=== PATIENT | male | born 1945 | race Caucasian/White ===

== ENCOUNTER → 2017-03-08 | Outpatient (CLI) | payer MEDICARE, BC | LOC: COL.RAD 12:39 | DX: K22.4 Dyskinesia of esophagus (principal) ==

== ENCOUNTER → 2018-01-02 | Emergency (ER) | payer MEDICARE, BC | LOC: COL.ER 16:02 | DX: Z72.89 Other problems related to lifestyle (principal) ==

== ENCOUNTER 2018-02-07 08:55 | Day surgery (SDC) | payer MEDICARE, BC ==
[2006-02-14 06:05] VITALS: BP 146/83
[~2018-02-07] VITALS: Ht 167.6 cm; Wt 65.1 kg
[~2018-02-07 08:55] MED LIST: ASPIRIN 81M81 MG/TA2 PO; D-2000 90 MG-201 TAB PO; LIPITOR 40MG TA40 MG PO; NEXIUM 40MG40 MG PO; NIASPAN1000 MG PO; PRINIVIL2.5 MG PO; PROAMATINE 5MG T5 MG PO; STRATTERA 40MG40 MG PO; TOPROL XL 25MG25 MG PO
[2018-02-07 09:36] VITALS: BP 116/72; PULSE 70; TEMP 98.2
[2018-02-07] MEDS ORDERED: ZYRTEC 10MG10 MG PO (09:47)
[2018-02-07 10:33] VITALS: BP 110/56; PULSE 84; TEMP 97.8
[2018-02-07 10:45] VITALS: BP 99/61; PULSE 64
[2018-02-07 11:00] VITALS: BP 96/65; PULSE 67
[2018-02-07 12:46] VITALS: BP 102/58; PULSE 59
== END 2018-02-07 11:20 | disposition home or self-care (01) ==
LOC: SDCO 08:55
DX: K21.9 Gastro-esophageal reflux disease without esophagitis (principal); R13.10 Dysphagia, unspecified; Z79.82 Long term (current) use of aspirin; Z79.899 Other long term (current) drug therapy; Z95.1 Presence of aortocoronary bypass graft
CPT/HCPCS: J2250; J3010; J7030

== ENCOUNTER 2018-03-09 09:58 | Inpatient (IN) | payer MEDICARE, BC ==
[~2018-03-09] VITALS: Ht 167.6 cm; Wt 64.9 kg
[2018-03-09] VITALS (468 sets, daily range): BP systolic 90–98; BP diastolic 50–59; PULSE 75–79; TEMP 97.9–98.7; O2SAT 67–100
[~2018-03-09 09:58] MED LIST changes: +ZYRTEC 10MG10 MG PO
[2018-03-09 10:32] LABS: HEMATOCRIT 38.4 % (42.0-52.0); HEMOGLOBIN 12.8 g/dl (13.5-18.0); MEAN CELL VOLUME 94 fl (80.0-100.0); MEAN CORPUSCULAR HEMOGLOBIN 31 pg (27.0-31.0); MEAN CORPUSCULAR HGB CONC 33 g/dl (33.0-37.0); MEAN PLATELET VOLUME 12.8 fl (7.4-10.4); PLATELET COUNT 92 K/mm3 (130-400); REDCELL DISTRIBUTION WIDTH-CV 15.1 % (11.5-14.5)
[2018-03-09] MEDS ORDERED: PRINIVIL2.5 MG PO (10:40)
[2018-03-09 10:42] LABS: ALANINE AMINOTRANSFERASE 81 U/L (21-72); ALBUMIN 2.9 gm/dL (3.5-5.0); ALKALINE PHOSPHATASE 137 U/L (50-136); ANION GAP 11 mmol/L (7-16); AST,SGOT 97 U/L (15-37); BILIRUBIN,TOTAL 0.9 mg/dL (0.0-1.0); BLOOD UREA NITROGEN 13 mg/dL (9-20); CALCIUM 8.7 mg/dL (8.4-10.2); CARBON DIOXIDE 25 mmol/L (22-30); CHLORIDE 101 mmol/L (98-107); CREATINE KINASE 100 U/L (55-170); CREATININE, serum 0.82 mg/dL (0.66-1.25); GLUCOSE 98 mg/dL (74-106); POTASSIUM 4.1 mmol/L (3.4-5.0); SODIUM 137 mmol/L (137-145); TOTAL PROTEIN 5.9 gm/dL (6.4-8.2)
[2018-03-09 10:53] LABS: TROPONIN-I < 0.012 ng/mL (0.000-0.034)
[2018-03-09 11:24] LABS: COLLECTION METHOD CLEAN CATCH
[2018-03-09 11:38] LABS: HYALINE CAST >12 /lpf; MUCOUS Present /lpf; PH 5 (5-8); SQUAMOUS EPITHELIAL 0-2 /hpf; URINE APPEARANCE Cloudy; URINE BACTERIA Rare /hpf; URINE BILIRUBIN Positive (NEGATIVE); URINE BLOOD Negative (NEGATIVE); URINE COLOR Amber; URINE GLUCOSE Negative (NEGATIVE); URINE KETONE Trace (NEGATIVE); URINE LEUKOCYTE ESTERASE 2+ (NEGATIVE); URINE NITRATE Negative (NEGATIVE); URINE PROTEIN(semi-quant) 3+ (NEGATIVE)
[2018-03-10] VITALS (736 sets, daily range): BP systolic 90–96; BP diastolic 44–65; PULSE 56–69; TEMP 98–98.4; O2SAT 85–100
[2018-03-10 06:00] LABS: BASO % 0.5 % (0.0-2.0); EOS # 0.1 (0.0-0.7); GRAN # 1.8 (1.4-6.5); GRAN % 41.3 % (42.2-75.2); LYMPH # 1.8 (1.2-3.4); LYMPH % 42.1 % (20.0-51.0); MEAN CELL VOLUME 95 fl (80.0-100.0); MEAN CORPUSCULAR HGB CONC 33 g/dl (33.0-37.0); MONO # 0.6 (0.1-0.6); MONO % 12.9 % (1.7-9.3); PLATELET COUNT 56 K/mm3 (130-400); REDCELL DISTRIBUTION WIDTH-CV 15.2 % (11.5-14.5)
[2018-03-10 06:07] LABS: HEMATOCRIT 31.3 % (42.0-52.0); HEMOGLOBIN 10.3 g/dl (13.5-18.0); MEAN CORPUSCULAR HEMOGLOBIN 31 pg (27.0-31.0)
[2018-03-10 06:10] LABS: CALCIUM 7.8 mg/dL (8.4-10.2); CREATININE, serum 0.64 mg/dL (0.66-1.25); POTASSIUM 5.5 mmol/L (3.4-5.0)
[2018-03-10 06:52] LABS: CALCIUM 7.7 mg/dL (8.4-10.2); CREATININE, serum 0.61 mg/dL (0.66-1.25); POTASSIUM 4.6 mmol/L (3.4-5.0)
[2018-03-10 10:08] LABS: BILIRUBIN UNCONJUGATED 0.1 mg/dL (0.0-1.1); BILIRUBIN,DIRECT 0.2 mg/dL (0.0-0.4); BILIRUBIN,TOTAL 0.3 mg/dL (0.0-1.0); TOTAL PROTEIN 4.6 gm/dL (6.4-8.2)
[2018-03-11] VITALS (85 sets, daily range): BP systolic 103–132; BP diastolic 53–80; PULSE 67–76; TEMP 97.7–98.1; O2SAT 92–100
[2018-03-11 06:03] LABS: BASO % 0.3 % (0.0-2.0); EOS # 0.1 (0.0-0.7); GRAN # 1.4 (1.4-6.5); GRAN % 42.2 % (42.2-75.2); HEMOGLOBIN 10.4 g/dl (13.5-18.0); LYMPH # 1.4 (1.2-3.4); LYMPH % 42.6 % (20.0-51.0); MEAN CELL VOLUME 95 fl (80.0-100.0); MEAN CORPUSCULAR HEMOGLOBIN 32 pg (27.0-31.0); MEAN CORPUSCULAR HGB CONC 33 g/dl (33.0-37.0); MEAN PLATELET VOLUME 13.1 fl (7.4-10.4); MONO # 0.4 (0.1-0.6); MONO % 11.6 % (1.7-9.3); PLATELET COUNT 60 K/mm3 (130-400); RED BLOOD COUNT 3.29 M/mm3 (4.20-5.60); REDCELL DISTRIBUTION WIDTH-CV 15.4 % (11.5-14.5)
[2018-03-11 06:05] LABS: HEMATOCRIT 31.4 % (42.0-52.0)
[2018-03-11 06:13] LABS: CALCIUM 7.4 mg/dL (8.4-10.2); CREATININE, serum 0.61 mg/dL (0.66-1.25); POTASSIUM 4.3 mmol/L (3.4-5.0)
[2018-03-11 09:44] LABS: ALBUMIN 1.9 gm/dL (3.5-5.0); BILIRUBIN,TOTAL 0.2 mg/dL (0.0-1.0); CALCIUM 7.5 mg/dL (8.4-10.2); CREATININE, serum 0.62 mg/dL (0.66-1.25); POTASSIUM 4.3 mmol/L (3.4-5.0); TOTAL PROTEIN 4.3 gm/dL (6.4-8.2)
[2018-03-12] VITALS (9 sets, daily range): BP systolic 86–103; BP diastolic 41–66; PULSE 67–106; TEMP 97.9–98.5
[2018-03-12 06:35] LABS: BASO % 0.2 % (0.0-2.0); EOS # 0.1 (0.0-0.7); EOS % 1.4 % (0-4.0); GRAN # 3.2 (1.4-6.5); GRAN % 56.7 % (42.2-75.2); HEMATOCRIT 35.8 % (42.0-52.0); HEMOGLOBIN 11.8 g/dl (13.5-18.0); LYMPH # 1.8 (1.2-3.4); LYMPH % 31.9 % (20.0-51.0); MEAN CELL VOLUME 94 fl (80.0-100.0); MEAN CORPUSCULAR HEMOGLOBIN 31 pg (27.0-31.0); MEAN CORPUSCULAR HGB CONC 33 g/dl (33.0-37.0); MONO # 0.5 (0.1-0.6); MONO % 9.4 % (1.7-9.3); PLATELET COUNT 73 K/mm3 (130-400); REDCELL DISTRIBUTION WIDTH-CV 15.4 % (11.5-14.5)
[2018-03-12 06:45] LABS: ALBUMIN 2.3 gm/dL (3.5-5.0); BILIRUBIN,TOTAL 0.5 mg/dL (0.0-1.0); CALCIUM 8.1 mg/dL (8.4-10.2); CREATININE, serum 0.67 mg/dL (0.66-1.25); POTASSIUM 3.6 mmol/L (3.4-5.0); TOTAL PROTEIN 5.1 gm/dL (6.4-8.2)
[2018-03-13 03:19] VITALS: BP 93/53; PULSE 62; TEMP 98.3
[2018-03-13 08:02] VITALS: BP 102/60; PULSE 123; TEMP 97.9
[2018-03-13 08:46] LABS: BASO % 0.3 % (0.0-2.0); EOS # 0.1 (0.0-0.7); EOS % 2.3 % (0-4.0); GRAN # 1.4 (1.4-6.5); GRAN % 41.5 % (42.2-75.2); LYMPH # 1.5 (1.2-3.4); LYMPH % 42.7 % (20.0-51.0); MEAN CELL VOLUME 95 fl (80.0-100.0); MEAN CORPUSCULAR HEMOGLOBIN 32 pg (27.0-31.0); MEAN CORPUSCULAR HGB CONC 33 g/dl (33.0-37.0); MEAN PLATELET VOLUME 13.9 fl (7.4-10.4); MONO # 0.4 (0.1-0.6); MONO % 12.9 % (1.7-9.3); PLATELET COUNT 61 K/mm3 (130-400); RED BLOOD COUNT 3.14 M/mm3 (4.20-5.60); REDCELL DISTRIBUTION WIDTH-CV 15.8 % (11.5-14.5)
[2018-03-13 08:55] VITALS: TEMP 99.1
[2018-03-13 08:56] LABS: CALCIUM 7.7 mg/dL (8.4-10.2); CREATININE, serum 0.67 mg/dL (0.66-1.25); HEMATOCRIT 29.9 % (42.0-52.0); POTASSIUM 4.1 mmol/L (3.4-5.0)
[2018-03-13 11:52] VITALS: BP 95/47; PULSE 77; TEMP 98.2
== END 2018-03-13 13:46 | disposition home or self-care (01) | DRG 641 ==
LOC: COL.ER 09:58 → ICU 13:59 → MEDICAL 03-11 17:13
PROVIDERS: Hospitalist; Internal Medicine; Nurse Practitioner Primary Care; Physician Assistant
DX: E87.2 Acidosis (principal); N39.0 Urinary tract infection, site not specified; I10 Essential (primary) hypertension; B95.7 Other staphylococcus as the cause of diseases classified elsewhere; I25.10 Atherosclerotic heart disease of native coronary artery without angina pectoris; Z95.1 Presence of aortocoronary bypass graft; Z85.46 Personal history of malignant neoplasm of prostate; Z87.891 Personal history of nicotine dependence; D64.9 Anemia, unspecified; D69.6 Thrombocytopenia, unspecified
CPT/HCPCS: 99223-AI; 99232-AI; 99233-AI; 99239; G8978-GP; G8979-GP; G8987-GO; G8988-GO; J0696; J2405; J7030

== ENCOUNTER 2018-06-09 11:20 | Emergency (ER) | payer MEDICARE, BC ==
[2006-02-14 06:05] VITALS: BP 146/83
[~2018-06-09] VITALS: Ht 165.1 cm; Wt 63.6 kg
[2018-06-09 11:35] VITALS: TEMP 97.2
[2018-06-09 12:36] LABS: BASO % 0.7 % (0.0-2.0); EOS # 0.1 (0.0-0.7); EOS % 1.5 % (0-4.0); GRAN # 2.7 (1.4-6.5); GRAN % 59.5 % (42.2-75.2); HEMATOCRIT 38.1 % (42.0-52.0); HEMOGLOBIN 12.6 g/dl (13.5-18.0); LYMPH # 1.4 (1.2-3.4); LYMPH % 31.1 % (20.0-51.0); MEAN CELL VOLUME 95 fl (80.0-100.0); MEAN CORPUSCULAR HEMOGLOBIN 31 pg (27.0-31.0); MEAN CORPUSCULAR HGB CONC 33 g/dl (33.0-37.0); MEAN PLATELET VOLUME 13.6 fl (7.4-10.4); MONO # 0.3 (0.1-0.6); PLATELET COUNT 92 K/mm3 (130-400); RED BLOOD COUNT 4.02 M/mm3 (4.20-5.60); REDCELL DISTRIBUTION WIDTH-CV 15.7 % (11.5-14.5)
[2018-06-09 12:39] LABS: ALANINE AMINOTRANSFERASE 78 U/L (21-72); ALBUMIN 2.9 gm/dL (3.5-5.0); ALKALINE PHOSPHATASE 140 U/L (50-136); ANION GAP 2 mmol/L (7-16); AST,SGOT 83 U/L (15-37); BILIRUBIN,TOTAL 0.9 mg/dL (0.0-1.0); BLOOD UREA NITROGEN 22 mg/dL (9-20); CALCIUM 8.5 mg/dL (8.4-10.2); CARBON DIOXIDE 28 mmol/L (22-30); CHLORIDE 108 mmol/L (98-107); CREATININE, serum 0.79 mg/dL (0.66-1.25); GLUCOSE 96 mg/dL (74-106); POTASSIUM 4.4 mmol/L (3.4-5.0); SODIUM 138 mmol/L (137-145); TOTAL PROTEIN 5.9 gm/dL (6.4-8.2)
[2018-06-09 12:53] LABS: TROPONIN-I < 0.012 ng/mL (0.000-0.034)
[2018-06-09 16:35] VITALS: BP 90/56; PULSE 77
== END 2018-06-09 16:35 | disposition home or self-care (01) ==
LOC: COL.ER 11:20
PROVIDERS: Emergency Medicine
DX: I95.1 Orthostatic hypotension (principal); I25.10 Atherosclerotic heart disease of native coronary artery without angina pectoris; K21.9 Gastro-esophageal reflux disease without esophagitis; Z95.1 Presence of aortocoronary bypass graft; Z87.891 Personal history of nicotine dependence; Z79.82 Long term (current) use of aspirin
CPT/HCPCS: J7030; Q9967

== ENCOUNTER 2019-03-01 10:48 | Emergency (ER) | payer MEDICARE, BC ==
[2006-02-14 06:05] VITALS: BP 146/83
[~2019-03-01] VITALS: Ht 165.1 cm; Wt 62.1 kg
[2019-03-01 10:53] VITALS: TEMP 97.7
[2019-03-01] MEDS ORDERED: LOPRESSOR 225 MG/TAB (11:22)
[2019-03-01 11:33] LABS: BASO % 0.3 % (0.0-2.0); EOS # 0.1 (0.0-0.7); EOS % 1.4 % (0-4.0); GRAN # 2.9 (1.4-6.5); GRAN % 49.8 % (42.2-75.2); HEMOGLOBIN 12.3 g/dl (13.5-18.0); LYMPH # 2.4 (1.2-3.4); LYMPH % 40.6 % (20.0-51.0); MEAN CELL VOLUME 94 fl (80.0-100.0); MEAN CORPUSCULAR HEMOGLOBIN 31 pg (27.0-31.0); MEAN CORPUSCULAR HGB CONC 33 g/dl (33.0-37.0); MEAN PLATELET VOLUME 13.4 fl (7.4-10.4); MONO # 0.5 (0.1-0.6); MONO % 7.7 % (1.7-9.3); PLATELET COUNT 83 K/mm3 (130-400); RED BLOOD COUNT 3.92 M/mm3 (4.20-5.60); REDCELL DISTRIBUTION WIDTH-CV 16.3 % (11.5-14.5)
[2019-03-01 11:48] LABS: HEMATOCRIT 36.9 % (42.0-52.0)
[2019-03-01 11:57] LABS: ALANINE AMINOTRANSFERASE 84 U/L (21-72); ALBUMIN 2.8 gm/dL (3.5-5.0); ALKALINE PHOSPHATASE 162 U/L (50-136); ANION GAP 10 mmol/L (7-16); AST,SGOT 105 U/L (15-37); BILIRUBIN,TOTAL 0.8 mg/dL (0.0-1.0); BLOOD UREA NITROGEN 17 mg/dL (9-20); CALCIUM 8.4 mg/dL (8.4-10.2); CARBON DIOXIDE 24 mmol/L (22-30); CHLORIDE 106 mmol/L (98-107); CREATININE, serum 0.86 (0.66-1.25); GLUCOSE 74 mg/dL (74-106); POTASSIUM 4.1 mmol/L (3.4-5.0); SODIUM 140 mmol/L (137-145); TOTAL PROTEIN 5.8 gm/dL (6.4-8.2)
[2019-03-01 11:59] LABS: C-REACTIVE PROTEIN < 0.5 mg/dL (0.0-0.9)
[2019-03-01 12:07] LABS: TROPONIN-I < 0.012 ng/mL (0.000-0.035)
[2019-03-01 13:16] LABS: COLLECTION METHOD CLEAN CATCH
[2019-03-01 13:28] LABS: MUCOUS Present /lpf; PH 6 (5-8); SQUAMOUS EPITHELIAL 0-2 /hpf; URINE APPEARANCE Hazy; URINE BACTERIA None Seen /hpf; URINE BILIRUBIN Negative (NEGATIVE); URINE BLOOD Negative (NEGATIVE); URINE COLOR Amber; URINE GLUCOSE Negative (NEGATIVE); URINE KETONE 1+ (NEGATIVE); URINE LEUKOCYTE ESTERASE Trace (NEGATIVE); URINE NITRATE Negative (NEGATIVE); URINE PROTEIN(semi-quant) 2+ (NEGATIVE); URINE RBC 0-2 /hpf
[2019-03-01 15:35] VITALS: BP 110/55; PULSE 86
== END 2019-03-01 15:37 | disposition home or self-care (01) ==
LOC: COL.ER 10:48
PROVIDERS: Physician Assistant
DX: R55 Syncope and collapse (principal); I10 Essential (primary) hypertension; I25.10 Atherosclerotic heart disease of native coronary artery without angina pectoris; E86.0 Dehydration; Z95.5 Presence of coronary angioplasty implant and graft; Z79.82 Long term (current) use of aspirin
CPT/HCPCS: J7030

== ENCOUNTER → 2024-06-16 | Outpatient (REF) | payer MEDICARE, BC ==
[~2024-06-16] MED LIST changes: +LOPRESSOR 225 MG/TAB
[2024-06-16 20:10] LABS: EOSINOPHIL 2 % (0-4); LYMPHOCYTE 39 % (20.0-51.0); NEUTROPHILS 47 % (42.0-75.2)
== END ==
LOC: COL.LAB 19:40
PROVIDERS: Family Medicine
DX: D69.6 Thrombocytopenia, unspecified (principal)